=== PATIENT | female | born 1940 | race Caucasian/White ===

== ENCOUNTER 2018-04-26 06:14 | Day surgery (SDC) | payer OTHER ==
[2018-04-18 14:47] VITALS: BMI 23.0
[2018-04-26] MEDS ORDERED: GELATIN, ABSORBABLE 100 EACH SPONGE TP ONE ×2 (07:08→09:49)
[2018-04-26] MEDS ORDERED: THROMBIN (BOVINE) 5,000 UNIT VIAL TP ONE ×2 (07:08→09:48)
[2018-04-26] MEDS ORDERED: MIDAZOLAM HCL 2 MG/2 ML SINGLE DOSE VIAL ONE (07:39)
[2018-04-26] MEDS ORDERED: ROPIVACAINE HCL 0.5% 30ML VIAL ONE (07:40)
[2018-04-26] MEDS ORDERED: LIDOCAINE HCL/PF 2% SDV 5ML VIAL ONE (08:30)
[2018-04-26] MEDS ORDERED: PROPOFOL 20 ML ONE (08:30)
[2018-04-26] MEDS ORDERED: fentaNYL CITRATE 250 MCG/5 ML VIAL ONE (08:30)
[2018-04-26] MEDS ORDERED: BENZOIN/ALOE VERA/STORAX/TOLU 58 ML BOTTLE ONE (08:30)
[2018-04-26] MEDS ORDERED: ROCURONIUM BROMIDE 50 MG/5 ML VIAL ONE ×2 (08:30→09:49)
[2018-04-26] MEDS ORDERED: ePHEDrine SULFATE 50 MG/1 ML AMPULE ONE (09:59)
[2018-04-26] MEDS ORDERED: GLYCOPYRROLATE 0.2 MG/1 ML VIAL ONE ×2 (10:24)
[2018-04-26] MEDS ORDERED: NEOSTIGMINE METHYLSULFATE 0.5 MG/ML - 10 ML MDV ONE (10:24)
[2018-04-26] MEDS ORDERED: BACITRACIN 15 GM TUBE TOPICAL OINTMENT ONE (10:27)
[2018-04-26] MEDS ORDERED: ONDANSETRON 4 MG/2 ML VIAL IVPUSH PRN (10:47)
[2018-04-26] MEDS ORDERED: PROMETHAZINE HCL 25 MG/1 ML VIAL IVPUSH PRN (10:47)
[2018-04-26] MEDS ORDERED: oxyCODONE HCL 5 MG TABLET PO PRN (10:47)
[2018-04-26] MEDS ORDERED: SODIUM CHLORIDE 0.45% 1,000 ML IV SCH (11:00)
--- NOTE | 2018-04-26 11:10 | OP ---
DATE OF OPERATION: 04/26/2018 PREOPERATIVE DIAGNOSES: 1. Left lower extremity lumbar radiculopathy. 2. Lumbar spinal stenosis with neurogenic claudication. 3. Intervertebral disk displacement lumbar spine. POSTOPERATIVE DIAGNOSES: 1. Left lower extremity lumbar radiculopathy. 2. Lumbar spinal stenosis with neurogenic claudication. 3. Intervertebral disk displacement lumbar spine. PROCEDURE PERFORMED: 1. Single-level lumbar decompressive laminectomy at L4-L5. 2. Excision of right-sided herniated disk fragments. SURGEON: Ruddy Infante MD HAMMER OPERATOR: Loreta Duckworth PA-C ANESTHESIA: General. INDICATION: The patient is a 77-year-old female with about 5 months of severe and persistent radiating pain down the left leg. This has been refractory to management with multiple oral medications as well as epidural steroid injections and physical therapy. She remains in severe pain and unable to adequately walk or be comfortable even at rest. She is indicated for operative intervention. Risks, benefits, and alternatives of the surgery were discussed in detail with the patient and family. Informed consent was obtained. DESCRIPTION OF PROCEDURE: The patient was brought into the operating room via stretcher, and general endotracheal anesthesia was administered by the anesthesiologist. The patient was then flipped into the prone position onto a padded Chase frame. All bony prominences were padded. The back was then prepped and draped in the usual sterile fashion. A fluoroscopic C-arm was placed for intraoperative localizing fluoroscopic radiographs. A time-out was performed, and a localizing radiograph was then taken. Appropriate incision was then made and dissection was carried down to the level of the fascia. The fascia was then split with electrocautery exposing the L4 lamina as well as distal to it. A deep retractor was placed, and another localizing fluoroscopic radiograph was then taken. Once the level was verified, a decompressive laminectomy of the L4-L5 level was then performed with a subtotal L4 laminectomy. I left the very superior portion of the L4 lamina intact for bony stability. There was noted to be severe spinal stenosis and hypertrophic buckled ligamentum flavum especially on the left side as shown by the preoperative MRI. The ligamentum flavum was excised, and dissection was carried down exposing the lateral edge of the dura and the traversing nerve root. A small probe was then used, and the extruded disk fragments were identified. Several calcified disk fragments were then removed just anterior to the L5 root and left-sided thecal sac. Excellent decompression was noted throughout. Hemostasis was achieved. The wounds were then copiously irrigated. The deep fascia was then closed with a No. 1 Vicryl suture. The deep dermal tissue was approximated with a 2-0 Vicryl suture, and the skin was closed with a combination of 2-0 nylon suture and rigoberto. A sterile dressing was applied. The patient tolerated the procedure well without complications. Loreta Churchillk was necessary throughout the case with proper assistance, retraction of the neural elements, and the laminectomy and diskectomy portion of the procedure. This could not have been done without her skilled surgical assistance. This case was significantly more time consuming and technically challenging because we had to do the excision of the disk fragments in addition to just the decompressive laminectomy of the central spinal stenosis. Yin [id number]
[2018-04-26] MEDS ORDERED: ONDANSETRON 4 MG/2 ML VIAL ONE (11:16)
[2018-04-26] MEDS ORDERED: CEFAZOLIN 1 GM/D5W 1 GM/50 ML BAG ONE (13:18)
[2018-04-26 13:45] VITALS: TEMP 97.9
[2018-04-26] MEDS ORDERED: CEFAZOLIN 1 GM/D5W 1 GRAM/50 ML BAG IVPB SCH ×2 (14:00→18:00)
[2018-04-26 15:14] VITALS: BP 129/80; PULSE 89
[2018-04-26] MEDS ORDERED: DOCUSATE SODIUM 100 MG CAPSULE (FP) PO SCH (22:00)
== END 2018-04-26 15:10 | disposition home or self-care (01) ==
LOC: FASU 06:14
PROVIDERS: ATTEND Orthopaedic Surgery Orthopaedic Surgery of the Spine
PROC: 01NB0ZZ Release Lumbar Nerve, Open Approach (ICD-10-PCS; principal; 2018-04-26 09:04)
DX: M51.16 Intervertebral disc disorders with radiculopathy, lumbar region (principal); M48.062 Spinal stenosis, lumbar region with neurogenic claudication
CPT/HCPCS: 72100-TC-FY; 76000-TC-FY; 94760